=== PATIENT | male | born 1995 | race Caucasian/White ===

== ENCOUNTER 2024-05-24 20:05 | Emergency (ER) | payer BC ==
[~2024-05-24] VITALS: Ht 170.2 cm; Wt 59.0 kg
[2024-05-24] MEDS ORDERED: CEPHALEXIN MONOHYDRATE 500 MG CAPSULE PO ONE (20:37)
[2024-05-24] MEDS ORDERED: SULFAMETH/TRIMETH 800/160 MG 1 UDTAB TABLET ONE (20:37)
[2024-05-24] MEDS ORDERED: IBUPROFEN 400 MG TABLET ONE (20:37)
[2024-05-24] MEDS: IBUPROFEN 400 MG TABLET PO ONE (20:38)
[2024-05-24] MEDS: CEPHALEXIN MONOHYDRATE 500 MG CAPSULE PO ONE (20:38)
[2024-05-24] MEDS: SULFAMETH/TRIMETH 800/160 MG 1 UDTAB TABLET PO ONE (20:38)
[2024-05-24] MEDS ORDERED: IBUP-1490 PO (20:51)
[2024-05-24] MEDS ORDERED: CEPH500T PO (20:51)
[2024-05-24] MEDS ORDERED: SULF1TAB48 PO (20:51)
[2024-05-24 21:01] VITALS: BP 145/84; TEMP 97.9; O2SAT 98
== END 2024-05-24 21:01 | disposition home or self-care (01) ==
LOC: ER 20:09
DX: S80.212A Abrasion, left knee, initial encounter (principal); L08.9 Local infection of the skin and subcutaneous tissue, unspecified; X58.XXXA Exposure to other specified factors, initial encounter; Y93.89 Activity, other specified; Y92.89 Other specified places as the place of occurrence of the external cause; Y99.8 Other external cause status
CPT/HCPCS: 73564-TC

== ENCOUNTER 2024-07-10 01:40 | Emergency (ER) | payer BC, MEDICAID ==
[~2024-07-10] VITALS: Ht 165.1 cm; Wt 65.8 kg
[~2024-07-10 01:40] MED LIST: CEPH500T PO; IBUP-1490 PO; SULF1TAB48 PO
[2024-07-10] MEDS ORDERED: LIDOCAINE 2% 20 ML MDV ONE (03:20)
[2024-07-10] MEDS ORDERED: DOXY-226 PO (03:40)
[2024-07-10] MEDS ORDERED: DOXYCYCLINE HYCLATE (100 MG) 100 MG TABLET ONE (03:42)
[2024-07-10] MEDS: DOXYCYCLINE HYCLATE (100 MG) 100 MG TABLET PO ONE (03:47)
[2024-07-10 03:49] VITALS: BP 120/81; TEMP 98.5; O2SAT 99
== END 2024-07-10 03:49 | disposition home or self-care (01) ==
LOC: ER 01:43
DX: S61.200A Unspecified open wound of right index finger without damage to nail, initial encounter (principal); L03.011 Cellulitis of right finger; Z88.0 Allergy status to penicillin; X58.XXXA Exposure to other specified factors, initial encounter; Y93.9 Activity, unspecified; Y92.89 Other specified places as the place of occurrence of the external cause; Y99.8 Other external cause status
CPT/HCPCS: 26010; 99283; J3490